=== PATIENT | female | born 2000 | race Caucasian/White ===

== ENCOUNTER 2023-11-13 08:27 | Day surgery (SDC) | payer OTHER ==
[~2023-11-13] VITALS: Ht 157.5 cm; Wt 69.9 kg
[2023-11-13] MEDS ORDERED: SODIUM CHLORIDE 0.9% 10 ML SYR ONE ×2 (08:35→09:30)
[2023-11-13] MEDS ORDERED: PROZAC10 MG PO (08:52)
[2023-11-13] MEDS ORDERED: URISTAT ULTRA99.5 MG (08:53)
[2023-11-13] MEDS ORDERED: STOOL SOFTNR PO (08:53)
[2023-11-13] MEDS ORDERED: [UNRECOGNIZED DRUG - OTHER] XX (08:54)
[2023-11-13] MEDS ORDERED: MIDAZOLAM HCL 2 MG/2 ML VIAL ONE (09:30)
[2023-11-13] MEDS ORDERED: LIDOCAINE HCL 1% (10MG/ML) 100 MG/10 ML MDV ONE (09:31)
[2023-11-13] MEDS ORDERED: BUPIVACAINE HCL PF 0.5 % 50 MG/10 ML SDV ONE (09:31)
[2023-11-13 10:04] VITALS: BP 119/87
== END 2023-11-13 10:11 | disposition home or self-care (01) ==
LOC: ORM 08:27
PROVIDERS: ATTEND Student in an Organized Health Care Education/Training Program
DX: M54.9 Dorsalgia, unspecified (principal); M54.89 Other dorsalgia; M79.18 Myalgia, other site; G89.4 Chronic pain syndrome